=== PATIENT | female | born 1980 | race Two or more races ===

== ENCOUNTER 2021-04-08 18:26 | Emergency (ER) | payer MEDICAID ==
[~2021-04-08] VITALS: Ht 157.5 cm; Wt 63.5 kg
--- NOTE | 2021-04-08 18:40 | NUR ---
[employer] at bedside speaking with patient about the incident.
--- NOTE | 2021-04-08 18:46 | NUR ---
OFFICER ANIBAL AND OFFICER AGAPITO FROM [employer] AT BEDSIDE.
--- NOTE | 2021-04-08 19:06 | NUR ---
Assumed care of patient from day shift nurse Shemar. Recieved patient lying in bed. AAOx4. In no acute distress. Calm and coperative at this time. Continue to monitor.
[2021-04-08 19:07] LABS: *BILIRUBIN,URIN NEGATIVE (NEGATIVE); *BLOOD, URINE NEGATIVE (NEGATIVE); *CLARITY,URINE CLEAR (CLEAR); *COLOR,URINE YELLOW (YELLOW); *KETONES,URINE NEGATIVE (NEGATIVE); *UROBILINOGEN,URINE 0.2 E.U./dl (NORMAL); LEUKOCYTE ESTERASE ,URINE NEGATIVE (NEGATIVE); NITRITE, URINE NEGATIVE (NEGATIVE); PH,URINE 6.5 (5.0-8.0); UGLUCOSE NEGATIVE (NEGATIVE)
[2021-04-08 19:08] LABS: *URINE HCG, QUAL NEGATIVE (NEGATIVE)
[2021-04-08 19:17] LABS: *AMPHETAMINE, URINE POSITIVE (NEGATIVE); *CANNABINOID, URINE NEGATIVE (NEGATIVE); *COCCAINE, URINE NEGATIVE (NEGATIVE); *OPIATE, URINE NEGATIVE (NEGATIVE); *PHENCYCLIDINE SCREEN,URINE NEGATIVE (NEGATIVE)
[2021-04-08 19:40] LABS: HEMATOCRIT 36.7 % (31.2-41.9); MEAN CORPUSCULAR HEMOGLOBIN 28.6 uug (24.7-32.8); MEAN CORPUSCULAR VOLUME 86.2 fL (75.5-95.3); PLATELET COUNT (AUTO) 229 K/uL (179-408)
[2021-04-08 19:45] LABS: CARBON DIOXIDE 27 mmol/L (21-32); CHLORIDE 103 mmol/L (98-107); GLUCOSE 87 mg/dL (74-106); POTASSIUM 4.7 mmol/L (3.5-5.1); UREA NITROGEN, BLOOD 10 mg/dL (7-18)
[2021-04-08 19:47] LABS: ETHANOL 108 MG/DL (0-0)
--- NOTE | 2021-04-08 19:58 | NUR ---
Patient reported feeling anxious. Dr. James made aware and now at bedside.
[2021-04-08 19:59] LABS: ACETAMINOPHEN < 2.0 ug/mL (10-30); ALANINE AMINOTRANSFERASE 21 U/L (14-59); ALKALINE PHOSPHATASE 59 U/L (50-136); ASPARTATE AMINOTRANSFERASE 19 U/L (15-37); BILIRUBIN,DIRECT 0.1 mg/dL (0.0-0.2); BILIRUBIN,TOTAL 0.2 mg/dL (0.2-1.0); TOTAL PROTEIN, SERUM 7.4 g/dL (6.4-8.2)
--- NOTE | 2021-04-08 20:31 | NUR ---
Triage nurse Adelso spoke to maid supervisor Ibis and informed her that patient need 1:1 sitter d/t SI. No 1:1 sitter available at this time per [employer] Ibis.
--- NOTE | 2021-04-08 20:35 | NUR ---
Informed Dr. James that patient complaining of severe anxiety. Dr. James already called PET team/Peggy for evaluation and will order Ativan.
[2021-04-08] MEDS ORDERED: LORAZEPAM 1 MG TABLET ONE (20:44)
[2021-04-08] MEDS ORDERED: LORAZEPAM 0.5 MG TABLET PO ONE (20:45)
--- NOTE | 2021-04-08 21:23 | NUR ---
Telephone call to PET team/Peggy regarding evaluation. She stated that she won't be able to come as she is still evaluating a patient in [facility]. Peggy instructed this nurse to call [facility]. Telephone call to Shruthi and informed about the patient. Awaiting for arrival.
--- NOTE | 2021-04-08 22:19 | NUR ---
PET team/Shruthi arrived to evaluate patient.
--- NOTE | 2021-04-08 22:21 | NUR ---
PET team/Shruthi at bedside.
--- NOTE | 2021-04-08 22:42 | NUR ---
Patient discharged to home in stable condition. Written and verbal after care instructions given. Patient verbalizes understanding of instructions. Stressed follow up or return to ER for worsening s/s. Patient ambulated fr the ER with steady gait. All belongings with patient.
[2021-04-08 22:43] VITALS: BP 122/79
== END 2021-04-08 22:44 | disposition home or self-care (01) ==
LOC: EDBD → MERGE 18:28 → ER 18:28
DX: F31.9 Bipolar disorder, unspecified (principal); R45.851 Suicidal ideations; F19.10 Other psychoactive substance abuse, uncomplicated; F17.210 Nicotine dependence, cigarettes, uncomplicated; Z20.822 Contact with and (suspected) exposure to COVID-19
CPT/HCPCS: 36415; 84443; 84703; 85025; A4663; G0480